=== PATIENT | female | born 2000 | race Caucasian/White ===

== ENCOUNTER 2023-11-11 09:44 | Outpatient (AMB) | payer OTHER, SELFPAY ==
--- NOTE | 2023-11-11 09:51 | MHC.PC.OV ---
Vital Signs 11/11/23 09:53 Height 5 ft 1 in Weight 225 lb BMI 42.5 BP 112/86 Blood Pressure Location Lt brachial Position Sitting Pulse 75 Pulse Source Pulse Oximeter Pulse Oximetry (%) 100 Oxygen Delivery Method Room Air Intake Visit Reasons: New patient- requesting physical Intake Note: Pt is here today as a New Patient to est care/ PE last papsmear 12/17/22 [facility] Is last menstrual period known: Yes Last menstrual period: 11/04/23 Allergies No Known Allergies Allergy (Verified 11/11/23 10:09) Medication List - Last Reconciled 11/11/23 by Dalia Bennett MD No Known Home Meds Tobacco use date assessed: 11/11/23 Dental Screening Dental Screen Date: 11/11/23 Did you have a dental visit in the last 12 months?: Yes Did you have a dental problem in the last 6 months where you did not have access to dental care?: Yes Was dental information given to patient?: Patient has dentist HPI New patient- requesting physical HPI Details 23-year-old lady, new to practice, here to establish care with a new PCP and requesting a physical exam. She is up-to-date with her cervical cancer screening, done 12/17/2022 in [facility]. She has history of anxiety depression currently not taking any medications, and previously was able to control through behavioral techniques but has been under lot of stress lately, and requesting referral to see a therapist. Not want to start any medications however at present time.. Has morbid obesity, trying to lose weight through diet and exercise. [facility] Medical History (Updated 11/11/23 @ 10:41 by Dalia Bennett MD) Fatigue Morbid obesity Anxiety and depression No pertinent past medical history Surgical History (Updated 11/11/23 @ 10:14 by Dalia Bennett MD) History of Family History (Updated 11/11/23 @ 10:23 by Dalia Bennett MD) Father Borderline personality disorder Mother Essential hypertension Social History (Updated 11/11/23 @ 10:15 by Dalia Bennett MD) Housing: Apartment Patient Tobacco Use Status: Never used Tobacco e-Cigarette/Vaping Use: Currently Using service: No Current occupational status: employed Cognitive needs: No Hearing needs: No Vision needs: Yes Female Reproductive History Menstrual Duration of menses: 3-5 days Date of last menstrual period: 11/04/23 control method: none Date of last pap smear: 12/17/22 (Negative for malignancy done at [facility]) Questionnaire PHQ-9 Over the last 2 weeks, how often have you been bothered by any of the following problems? 1. Little interest or pleasure in doing things: several days 2. Feeling down, depressed, or hopeless: several days 3. Trouble falling or staying asleep, or sleeping too much: several days 4. Feeling tired or having little energy: several days 5. Poor appetite or overeating: several days 6. Feeling bad about yourself - or that you are a failure or have let yourself or your family down: several days 7. Trouble concentrating on things, such as reading the newspaper or watching television: several days 8. Moving or speaking so slowly that other people could have noticed. Or the opposite - being so fidgety or restless that you have been moving around a lot more than usual: not at all 9. Thoughts that you would be better off or of hurting yourself in some way: not at all Total score: 7 Depression Screening Interpretation: Positive Depression Screening Done: Yes 47541 - PHQ-9 Billing: Yes Source: Developed by Drs. Flaco Ayoub, Elza Parrish, Leno Carlson and colleagues, with an educational luisa from [employer]. Thrive Questionnaire Date Thrive assessed: 11/11/23 I am a: Patient What is your living situation today?: I have a steady place to live Within the past 12 months, did the food you bought not last and you didn't have the money to get more?: Never true Within the past 12 months, did you worry whether your food would run out before you got money to buy more?: Never true Do you have trouble paying for medicines?: No Do you have trouble getting transportation to medical appointments?: No Do you have trouble paying your heating and electricity bill?: No Do you have trouble taking care of your child, family member or friend?: No Do you have trouble with day-to-day activities such as bathing, preparing meals, shopping, managing finances, etc.?: No Are you currently unemployed and looking for a job?: No Are you interested in more education?: Yes Please select the resources that you would like help with: Education THRIVE Score: 0 AUDIT C Alcohol Use Questionnaire (AUDIT-C) 1. How often do you have a drink containing alcohol?: Never Total Score: 0 JOE-7 AMB Questionnaire JOE-7 Date JOE - 7 assessed: 11/11/23 Feeling nervous, anxious, or on edge: 2 = More than half the days Not being able to stop or control worryin = More than half the days Worrying too much about different things: 2 = More than half the days Trouble relaxin = Several days Being so restless that it is hard to sit still: 1 = Several days Becoming easily annoyed or irritable: 1 = Several days Feeling afraid as if something awful might happen: 1 = Several days Total JOE-7 score (0-4 normal; 5-9 mild; 10-14 moderate; 15-21 severe): 10 Source: Developed by Drs. Flaco Ayoub, Elza Parrish, Leno Carlson and colleagues, with an educational luisa from [employer]. JOE-7 Assessment Billing JOE-7 Assessment Tool: JOE-7 Assessment 72873 Review of Systems Const Denies body aches, Denies fatigue, Denies fever(s), Denies headache(s) and Denies weakness Eyes Denies change in vision, Denies eye discharge and Denies itchy eyes ENT Denies dizziness, Denies headache(s), Denies nasal congestion, Denies nasal discharge and Denies sore throat Card Denies chest pain, Denies lightheadedness, Denies palpitations and Denies dyspnea Resp Denies chest congestion, Denies cough, Denies dyspnea and Denies wheezing GI Denies abdominal pain, Denies change in bowel habits and Denies heartburn Denies hematuria, Denies urinary frequency, Denies dysuria and Denies urinary urgency Musc Reports no additional complaints Skin/Breast Denies breast pain, Denies breast mass, Denies lesions and Denies rash Neuro Denies dizziness, Denies headache(s) and Denies weakness Psych Reports as per HPI Endo Denies fatigue, Denies polydipsia, Denies polyuria and Denies palpitations Luis/Lymph Denies easy bruising Aller/Immun Denies itchy eyes, Denies seasonal rhinorrhea and Denies wheezing Physical exam (Primary Care) Vital Signs: Last Vital Signs Pulse 75 11/11/23 09:53 BP 112/86 11/11/23 09:53 Pulse Ox 100 11/11/23 09:53 Oxygen Delivery Method Room Air 11/11/23 09:53 BMI result Body Mass Index 42.5 Tobacco/Smoking Status: Tobacco use Status Tobacco use date assessed 11/11/23 11/11/23 09:58 Patient Tobacco Use Status Never used Tobacco 11/11/23 10:15 e-Cigarette/Vaping Use Currently Using 11/11/23 10:15 PHQ-9: PHQ-9 Score PHQ-9: Total score 7 11/11/23 10:29 Depression Screening Interpretation: Positive Thrive Assessment: Date of Thrive Assessment Date Thrive assessed 11/11/23 11/11/23 10:29 Const General: no acute distress and alert Nutritional Appearance: obese Orientation/consciousness: patient oriented x3 HENMT Head: Yes normocephalic Ears: external ears normal, TM's normal bilaterally and EAC's normal General nose exam: Normal external nose present and No nasal discharge present Face and sinus: Yes face symmetric Mouth: Normal oral and palatal mucosa present, oropharynx normal and moist mucous membranes Eyes General: appearance normal, both eyes and all related structures Conjunctivae: conjunctivae normal Sclerae: sclerae normal Pupils: Equal, round and reactive pupils present EOM: EOMs intact bilaterally Neck Neck: Yes full ROM, Yes no lymphadenopathy and Yes supple Thyroid: Thyroid normal Chest Breast/axilla palpation: normal palpation of the breasts Resp Effort & Inspection: normal respiratory effort and able to speak in complete sentences Auscultation: clear to auscultation bilaterally Cardio Rate: regular rate Rhythm: regular rhythm Heart sounds: S1 normal heart sound present and S2 normal heart sound present GI Palpation (GI): Soft to palpation, nontender, no guarding and no masses Auscultation: normal bowel sounds General: Yes no CVA tenderness Back/Spine/Pelvis Back: no CVA tenderness and No back tenderness Skin General skin exam: no rashes or lesions noted Neuro General: patient oriented x3, gait normal, moves all extremities, Normal light touch and pain sensation, no focal motor deficits and CN's II-XI intact bilaterally Cranial nerves: Yes Equal, round and reactive pupils present Cognition (Neuro): normal cognition Gait exam (Neuro): Normal gait present Motor exam (neuro): 5/5 motor strength present throughout Extrem General: Yes normal to inspection, Yes full ROM, Yes no joint enlargement, Yes no pedal edema and Yes normal gait Psych Appearance: grossly normal and well kempt Mental Status: mental status grossly normal Speech and movement: Normal speech and movement present Affect: normal affect Attitude: cooperative Thought process: Normal thought process present Thought content: Normal thought content present Assessment and Plan Assessment & Plan (1) Annual visit for general adult medical examination with abnormal findings: Code(s): Z00.01 - Encounter for general adult medical examination with abnormal findings Plan: Will check appropriate labs. Recommended dental visit every 6 months and regular eye exams, at least every 2 years. Take adequate calcium in diet and vitamin-D 3 at 2000 IU per cap once a day, in addition to weight-bearing exercises to help maintain good muscle tone and weight control. Instructed to do self-breast exam, and recommended to get yearly mammogram, starting at age 40. She went to [facility] for her routine Pap and pelvic exam, last done a year ago with normal findings per patient would like to be referred to an OBGYN here at [facility].. Reminded to get her yearly flu shot, up-to-date with her Tdap, but does not want to get a COVID vaccine (2) Anxiety and depression: Code(s): F41.9 - Anxiety disorder, unspecified; F32.A - Depression, unspecified Plan: Referred to our mental health coordinator, Stephanie for assistance in getting in to be seen for counseling. Patient does not want to start any medications at present time. (3) Morbid obesity: Code(s): E66.01 - Morbid (severe) obesity due to excess calories Plan: Discussed need to increase activity and weight reduction. Recommended focusing on improving health instead of dieting. Mediterranean diet is a healthy diet that helps, limit food high in fat, sugar, and calories. Eat slowly, pay attention to portion sizes, plan your meals ahead of time, start regular physical activity, at least 150 minutes of moderate intensity exercise, or 90 minutes per week of vigorous exercise. Keeping a food diary, tracking what you eat and your physical activity can help assess what improvements you can make. There are many health problems associated with being overweight/obese, so it is important to improve your diet and exercise. There are medications and surgical options available, but Lifestyle changes are the 1st step. Orders: Orders Hemoglobin and Hematocrit 11/11/23 E66.01 - Morbid (severe) obesity due to excess calories, F32.A - Depression, unspecified, F41.9 - Anxiety disorder, unspecified, R53.83 - Other fatigue, Z00.01 - Encounter for general adult medical examination with abnormal findings, Z13.1 - Encounter for screening for diabetes mellitus, Z13.220 - Encounter for screening for lipoid disorders Alanine Aminotransferase 11/11/23 E66.01 - Morbid (severe) obesity due to excess calories, F32.A - Depression, unspecified, F41.9 - Anxiety disorder, unspecified, R53.83 - Other fatigue, Z00.01 - Encounter for general adult medical examination with abnormal findings, Z13.1 - Encounter for screening for diabetes mellitus, Z13.220 - Encounter for screening for lipoid disorders Aspartate Amino Transferase 11/11/23 E66.01 - Morbid (severe) obesity due to excess calories, F32.A - Depression, unspecified, F41.9 - Anxiety disorder, unspecified, R53.83 - Other fatigue, Z00.01 - Encounter for general adult medical examination with abnormal findings, Z13.1 - Encounter for screening for diabetes mellitus, Z13.220 - Encounter for screening for lipoid disorders Basic Metabolic Panel Fasting 11/11/23 E66.01 - Morbid (severe) obesity due to excess calories, F32.A - Depression, unspecified, F41.9 - Anxiety disorder, unspecified, R53.83 - Other fatigue, Z00.01 - Encounter for general adult medical examination with abnormal findings, Z13.1 - Encounter for screening for diabetes mellitus, Z13.220 - Encounter for screening for lipoid disorders Lipid Panel 11/11/23 E66.01 - Morbid (severe) obesity due to excess calories, F32.A - Depression, unspecified, F41.9 - Anxiety disorder, unspecified, R53.83 - Other fatigue, Z00.01 - Encounter for general adult medical examination with abnormal findings, Z13.1 - Encounter for screening for diabetes mellitus, Z13.220 - Encounter for screening for lipoid disorders Vitamin D 25-OH Total 11/11/23 E66.01 - Morbid (severe) obesity due to excess calories, F32.A - Depression, unspecified, F41.9 - Anxiety disorder, unspecified, R53.83 - Other fatigue, Z00.01 - Encounter for general adult medical examination with abnormal findings, Z13.1 - Encounter for screening for diabetes mellitus, Z13.220 - Encounter for screening for lipoid disorders TSH reflex Free T4 11/11/23 E66.01 - Morbid (severe) obesity due to excess calories, F32.A - Depression, unspecified, F41.9 - Anxiety disorder, unspecified, R53.83 - Other fatigue, Z00.01 - Encounter for general adult medical examination with abnormal findings, Z13.1 - Encounter for screening for diabetes mellitus, Z13.220 - Encounter for screening for lipoid disorders Referrals B[employer] 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 Referral E66.01 - Morbid (severe) obesity due to excess calories, F32.A - Depression, unspecified, F41.9 - Anxiety disorder, unspecified, R53.83 - Other fatigue, Z00.01 - Encounter for general adult medical examination with abnormal findings, Z13.1 - Encounter for screening for diabetes mellitus, Z13.220 - Encounter for screening for lipoid disorders Coding Level of Care Code New Pt Prev Care 18-39yr([id number] Diagnoses Annual visit for general adult medical examination with abnormal findings Z00.01 Anxiety and depression F41.9; F32.A Morbid obesity E66.01 Additional Codes JOE-7 Assessment Billing - JOE-7 Assessment Tool: JOE-7 Assessment 59211 ([id number])
[2023-11-11 09:53] VITALS: BP 112/86; PULSE 75; O2SAT 100; BMI 42.5
== END 2023-11-11 11:00 | disposition home or self-care (01) ==
PROVIDERS: PCP Internal Medicine; Visit Provider Internal Medicine
DX: Z00.00 Encounter for general adult medical examination without abnormal findings (principal); E66.01 Morbid (severe) obesity due to excess calories; Z68.41 Body mass index [BMI] 40.0-44.9, adult; F41.9 Anxiety disorder, unspecified; F32.A Depression, unspecified
CPT/HCPCS: 96127; 99385

== ENCOUNTER 2024-10-06 09:56 | Outpatient (AMB) | payer OTHER, SELFPAY ==
--- NOTE | 2024-10-06 09:59 | AM.OFFWIN_ITS ---
Intake Vital Signs 10/06/24 10:04 Weight 225 lb BP 110/76 Blood Pressure Location Rt brachial Position Sitting Pulse 80 Pulse Source Pulse Oximeter Pulse Oximetry (%) 99 Oxygen Delivery Method Room Air Intake Visit Reasons: EP STD testing? Intake Note: Patient here for vaginal sensitivity, small bumps she noticed last saturday. has a new partner on and off for a few months. Patient Tobacco Use Status: Never used Tobacco Allergies No Known Allergies Allergy (Verified 10/06/24 10:04) Do you need a note to return to daycare/school/sports/work: No HPI HPI Comments History of Present Illness Details History of Present Illness The patient is a 24-year-old female presenting with genital lesions. She reported small, sensitive bumps on her vulva for the past week, located externa lly, without associated itchiness. The lesions are sensitive, particularly during wiping or washing, but do not burn or tingle. She engaged with a partner following a period of inactivity, raising concerns about potential exposure to other partners. The patient noted a small amount of white discharge coming from the area. She experienced no burning during urination, and the lesions themselves are not exuding any substance. The patient's last menstrual period was the preceding Saturday, concluding over the weekend, with no possibility of . She denies any associated systemic symptoms such as fever, chills, chest pain, or gastrointestinal distress, aside from mild stomach pain. She denies dysuria, hematuria, vaginal bleeding, or odor. Physical Exam General: Cooperative, healthy appearing, comfortable, no acute distress and well developed Orientation: Patient oriented x3 Respiratory: Normal respiratory effort and able to speak in complete sentences. Clear to auscultation bilaterally Cardiovascular: Regular rate and rhythm. Normal S1 and S2 GI: Normal to inspection. Soft to palpation and nontender Skin: Bumps noted on the inner vulva, sensitive to palpation. No discharge note d. No rashes or lesions noted elsewhere. Patient was informed and verbally consented to the use of an ambient scribe for clinic note documentation during this visit. [facility] Medical History (Updated 10/06/24 @ 11:00 by Sahra Florence PA-C) Fatigue Morbid obesity Anxiety and depression (~10/06/24) No pertinent past medical history Surgical History (Updated 11/11/23 @ 10:14 by Dalia eBnnett MD) History of Family History (Updated 11/11/23 @ 10:23 by Dalia Bennett MD) Father Borderline personality disorder Mother Essential hypertension Social History (Updated 11/11/23 @ 10:15 by Dalia Bennett MD) Housing: Apartment Patient Tobacco Use Status: Never used Tobacco e-Cigarette/Vaping Use: Currently Using service: No Current occupational status: employed Cognitive needs: No Hearing needs: No Vision needs: Yes Review of Systems Const All systems reviewed & are unremarkable except as noted in HPI and below Physical Exam Vital Signs: Last Vital Signs Pulse 80 10/06/24 10:04 BP 110/76 10/06/24 10:04 Pulse Ox 99 10/06/24 10:04 Oxygen Delivery Method Room Air 10/06/24 10:04 Assessment & Plan Assessment & Plan (1) Vaginal lesion: Code(s): N89.8 - Other specified noninflammatory disorders of vagina Plan Most likely herpes vs STD vs folliculitis Plan The examination suggested that the genital lesions may indicate an HSV infection. Culture swabs were taken for confirmatory testing. The patient was educated on the lesion's nature and instructed on sample collection. Emphasis was placed on hygiene and sexual safety to manage symptoms and prevent spread. Will order STD testing for other STD's today. Discussed safe sex with the patient. Orders: Orders Herpes Virus Culture Today N89.8 - Other specified noninflammatory disorders of vagina CT NG by PCR Today N89.8 - Other specified noninflammatory disorders of vagina HIV Ab/Ag Today N89.8 - Other specified noninflammatory disorders of vagina Bacterial Vaginosis Panel Today N89.8 - Other specified noninflammatory disorders of vagina Syphilis Screen Today N89.8 - Other specified noninflammatory disorders of vagina Coding Level of Care Code Est Pt Level 4 (86788) Diagnoses Vaginal lesion N89.8
[2024-10-06 10:04] VITALS: BP 110/76; PULSE 80; O2SAT 99
== END 2024-10-06 11:06 | disposition home or self-care (01) ==
PROVIDERS: PCP Internal Medicine; Visit Provider Physician Assistant Medical
DX: N89.8 Other specified noninflammatory disorders of vagina (principal)

== ENCOUNTER 2024-10-06 09:56 | Outpatient (REF) | payer OTHER, SELFPAY ==
[2024-10-06 14:04] LABS: Bacterial Vaginosis PCR NEGATIVE (Negative); Candida Group PCR DETECTED (Not Detect); Candida glab krusei PCR NOT DETECTED (Not Detect); Trichomonas vaginalis PCR NOT DETECTED (Not Detect)
[2024-10-06 14:39] LABS: CT PCR NOT DETECTED (Not Detect.); NG PCR NOT DETECTED (Not Detect.)
== END 2024-10-06 09:57 | disposition home or self-care (01) ==
LOC: HO.HMGCLDS 09:56
PROVIDERS: PCP Internal Medicine; Visit Provider Physician Assistant Medical
DX: N89.8 Other specified noninflammatory disorders of vagina (principal)
CPT/HCPCS: 81515; 87255; 87491; 87591

== ENCOUNTER 2025-04-13 10:39 | Outpatient (REF) | payer OTHER, SELFPAY ==
[2025-04-13 13:44] LABS: MANUAL DIFF FLAG NO
[2025-04-13 14:01] LABS: Hematocrit 39.3 % (37.0-47.0); Hemoglobin 12.3 g/dl (12.0-16.0); Imm Gran Abs Auto 0.01 X10*3/uL (0.00-0.03); Imm Gran Pct Auto 0.2 % (0.0-0.4); Lymphocytes Absolute Auto 1.7 X10*3/uL (1.2-4.9); Mean Corpuscular HGB Conc 31.3 g/dl (31.0-35.0); Mean Corpuscular Hemoglobin 25.9 pg (27.0-33.0); Mean Corpuscular Volume 82.7 fL (80.0-98.0); NRBC Abs Auto 0.000 X10*3/uL (0.0-0.012); NRBC Pct Auto 0.0 /100WBC (0.0-0.2); Platelet Count 319 X10*3/uL (160-400); Red Blood Count 4.75 X10*6/uL (4.20-5.50); White Blood Count 6.3 X10*3/uL (4.8-10.8)
[2025-04-13 14:35] LABS: Erythrocyte Sedimentation Rate 11 MM/HR (0-20)
[2025-04-13 14:51] LABS: Alanine Aminotransferase 19 U/L (0-31); Albumin Level 4.6 g/dL (3.5-5.0); Alkaline Phosphatase 67 U/L (39-117); Anion Gap 10 (12-20); Aspartate Amino Transferase 23 U/L (5-31); Blood Urea Nitrogen 10 mg/dL (9-16); Calcium 9.6 mg/dL (8.4-10.2); Carbon Dioxide 28 mmol/L (22-29); Chloride 107 mmol/L (96-108); Cholesterol 239 mg/dL (<200); Estimated Glomerular Filt Rate > 60; HDL Cholesterol 64 mg/dL (>40); Potassium 3.9 mmol/L (3.3-5.1); Sodium 141 mmol/L (135-145); Total Protein 7.5 g/dL (6.5-8.0); Triglycerides 81 mg/dL (<150)
[2025-04-13 15:16] LABS: Folate 8.5 ng/mL (> or = 4.0); Vitamin B12 387 pg/mL (200-900)
[2025-04-14 06:43] LABS: Lyme Abs Screen <0.90 index
== END 2025-04-13 10:40 | disposition home or self-care (01) ==
LOC: HO.HMGCLDS 10:39
PROVIDERS: PCP Internal Medicine; Visit Provider Internal Medicine
DX: Z01.84 Encounter for antibody response examination (principal); E66.01 Morbid (severe) obesity due to excess calories; R53.83 Other fatigue; M25.50 Pain in unspecified joint; Z13.220 Encounter for screening for lipoid disorders; Z13.1 Encounter for screening for diabetes mellitus; Z13.21 Encounter for screening for nutritional disorder
CPT/HCPCS: 36415; 80053; 80061; 82306; 82607; 82746; 84443; 85025; 85652; 86141; 86431; 86617; 86618

== ENCOUNTER 2025-04-15 11:17 | Outpatient (AMB) | payer OTHER, SELFPAY ==
--- NOTE | 2025-04-15 11:31 | A.OFFPC_ITS ---
Vital Signs 04/15/25 11:35 Height 5 ft 1 in Weight 233 lb BMI 44.0 BP 110/80 Blood Pressure Location Lt brachial Position Sitting Respiration 16 Pulse 74 Pulse Source Pulse Oximeter Temp 98.1 F Temp Source Oral Pulse Oximetry (%) 99 Oxygen Delivery Method Room Air Intake Visit Reasons: Annual PE Intake Note: Pt is here today for her PE: Last papsmear 12/17/22 Is last menstrual period known: Yes Last menstrual period: 04/03/25 Allergies No Known Allergies Allergy (Verified 04/15/25 11:36) Tobacco use date assessed: 04/15/25 Dental Screening Dental Screen Date: 04/15/25 Did you have a dental visit in the last 12 months?: Yes Did you have a dental problem in the last 6 months where you did not have access to dental care?: No Was dental information given to patient?: Patient has dentist [facility] Medical History (Updated 04/15/25 @ 12:07 by Dalia Bennett MD) Rash Elevated C-reactive protein (CRP) Polyarthralgia Pain of both wrist joints Fatigue Morbid obesity Anxiety and depression (~10/06/24) No pertinent past medical history Surgical History (Updated 11/11/23 @ 10:14 by Dalia Bennett MD) History of Family History (Updated 04/15/25 @ 11:52 by Dalia Bennett MD) Father Borderline personality disorder Mother Essential hypertension Psoriasis Maternal Grandfather Bone cancer Social History (Updated 11/11/23 @ 10:15 by Dalia Bennett MD) Housing: Apartment Patient Tobacco Use Status: Never used Tobacco e-Cigarette/Vaping Use: Currently Using service: No Current occupational status: employed Cognitive needs: No Hearing needs: No Vision needs: Yes Female Reproductive History Menstrual Date of last menstrual period: 04/03/25 Questionnaire PHQ-9 Over the last 2 weeks, how often have you been bothered by any of the following problems? 1. Little interest or pleasure in doing things: several days 2. Feeling down, depressed, or hopeless: several days 3. Trouble falling or staying asleep, or sleeping too much: nearly every day 4. Feeling tired or having little energy: nearly every day 5. Poor appetite or overeating: nearly every day 6. Feeling bad about yourself - or that you are a failure or have let yourself or your family down: several days 7. Trouble concentrating on things, such as reading the newspaper or watching television: nearly every day 8. Moving or speaking so slowly that other people could have noticed. Or the opposite - being so fidgety or restless that you have been moving around a lot more than usual: several days 9. Thoughts that you would be better off or of hurting yourself in some way: not at all Total score: 16 Depression Screening Interpretation: Positive Depression Screening Done: Yes 62175 - PHQ-9 Billing: Yes Source: Developed by Drs. Flaco Ayoub, Elza Parrish, Leno Carlson and colleagues, with an educational luisa from [employer]. Thrive Questionnaire Date Thrive assessed: 01/02/25 What is your living situation today?: I have a steady place to live Within the past 12 months, did the food you bought not last and you didn't have the money to get more?: Never true Within the past 12 months, did you worry whether your food would run out before you got money to buy more?: Never true Do you have trouble paying for medicines?: No Do you have trouble getting transportation to medical appointments?: No Do you have trouble paying your heating and electricity bill?: No Do you have trouble taking care of your child, family member or friend?: No Do you have trouble with day-to-day activities such as bathing, preparing meals, shopping, managing finances, etc.?: No Are you currently unemployed and looking for a job?: No Are you interested in more education?: No Please select the resources that you would like help with: Paying for medicine Currently or been in a relationship where the following occur: No concerns reported THRIVE Score: 0 AUDIT C Alcohol Use Questionnaire (AUDIT-C) 1. How often do you have a drink containing alcohol?: Never Total Score: 0 Score Reviewed/Action Taken: Yes JOE-7 AMB Questionnaire JOE-7 Date JOE - 7 assessed: 11/11/23 Feeling nervous, anxious, or on edge: 2 = More than half the days Not being able to stop or control worryin = More than half the days Worrying too much about different things: 2 = More than half the days Trouble relaxin = Several days Being so restless that it is hard to sit still: 1 = Several days Becoming easily annoyed or irritable: 1 = Several days Feeling afraid as if something awful might happen: 1 = Several days Total JOE-7 score (0-4 normal; 5-9 mild; 10-14 moderate; 15-21 severe): 10 Source: Developed by Drs. Flaco Ayoub, Elza Parrish, Leno Carlson and colleagues, with an educational luisa from [employer]. JOE-7 Assessment Billing JOE-7 Assessment Tool: JOE-7 Assessment 81924 Physical exam (Primary Care) Vital Signs: Last Vital Signs Temp 98.1 F 04/15/25 11:35 Pulse 74 04/15/25 11:35 Resp 16 04/15/25 11:35 BP 110/80 04/15/25 11:35 Pulse Ox 99 04/15/25 11:35 Oxygen Delivery Method Room Air 04/15/25 11:35 BMI result Body Mass Index 44.0 Tobacco/Smoking Status: Tobacco use Status Tobacco use date assessed 04/15/25 04/15/25 11:41 Patient Tobacco Use Status Never used Tobacco 04/15/25 11:32 e-Cigarette/Vaping Use Currently Using 04/15/25 11:32 PHQ-9: PHQ-9 Score PHQ-9: Total score 16 04/15/25 11:42 Depression Screening Interpretation: Positive Thrive Assessment: Date of Thrive Assessment Date Thrive assessed 01/02/25 04/15/25 11:32 Currently or been in a relationship where the following occur: No concerns reported Office Procedures Flu Questionnaire Does the patient have a severe egg allergy?: No Does the patient have severe life threatening allergies?: No Does the patient have a fever or illness today?: No Has the patient ever had Guillain-[place] Syndrome?: No Has the patient ever had any past reaction to a flu shot?: No Immunizations Fluarix [id number] (PF) 45 mcg (15 mcg x 3)/0.5 mL IM syringe Performing Provider: Dalia Bennett MD Performing Location: [facility] [place] [facility] Administered by: Gali Weiss CMA on 04/15/25 12:19 Dose Route Admin Location Dispensed Lot Number Expiration Date [facility] Supply Chain Specialist 0.5 mL IM Left Deltoid 0.5 mL [id number] 11/02/25 [id number] [employer] VIS Given Date VIS Provided VIS Publication Date 04/15/25 Single Vaccine 24 Eligibility Eligibility Date Funding Source Not VFC Eligible 04/15/25 Private Coding Diagnoses Pain of both wrist joints M25.531; M25.532 Anxiety and depression F41.9; F32.A Morbid obesity E66.01 Fatigue R53.83 Annual visit for general adult medical examination with abnormal findings Z00.01 Rash R21 Additional Codes PHQ-9 - 38269 - PHQ-9 Billing: Yes ([id number]) JOE-7 Assessment Billing - JOE-7 Assessment Tool: JOE-7 Assessment [id number] ([id number]) Assessment & Plan Assessment & Plan (1) Pain of both wrist joints: Code(s): M25.531 - Pain in right wrist; M25.532 - Pain in left wrist Category: Medical (2) Anxiety and depression: Onset Date: ~10/06/24 Code(s): F41.9 - Anxiety disorder, unspecified; F32.A - Depression, unspecified Category: Medical (3) Morbid obesity: Code(s): E66.01 - Morbid (severe) obesity due to excess calories Category: Medical (4) Fatigue: Code(s): R53.83 - Other fatigue Category: Medical (5) Annual visit for general adult medical examination with abnormal findings: Code(s): Z00.01 - Encounter for general adult medical examination with abnormal findings (6) Rash: Code(s): R21 - Rash and other nonspecific skin eruption Category: Medical Orders: Orders NE electromyogram (EMG) Today M25.531 - Pain in right wrist, M25.532 - Pain in left wrist NE nerve conduction velocity Today M25.531 - Pain in right wrist, M25.532 - Pain in left wrist Influenza [id number] Immunization Today Z23 - Encounter for immunization Referrals Rheumatology Referral M25.50 - Pain in unspecified joint, R79.82 - Elevated C- reactive protein (CRP) Dermatology Referral R21 - Rash and other nonspecific skin eruption
[2025-04-15 11:35] VITALS: BP 110/80; PULSE 74; RESP 16; TEMP 36.7; O2SAT 99; BMI 44.0
--- OUTSIDE RECORDS SUMMARY | 2025-04-15 17:30 | XMS_ITS ---
Author Name [facility] Organization Unknown History of Medication Use Medication Directions Dispensed Refills Start Date End Date Stat sertraline HCl 12/29/2024 active Encounters Encounter Type Encounter Reason Primary Diagnosis Location Date Ambulatory TBE Strain of unspec ified muscle and tendon at ankle and foot level, right foot, initial encounter [facility] 02/10/2025 Care Team Organization Name Specialty Phone Email Start Date End Da te [facility] 02/10/2025 [facility] 02[facility]10/2025
== END 2025-04-15 13:02 | disposition home or self-care (01) ==
PROVIDERS: PCP Internal Medicine; Visit Provider Internal Medicine
DX: Z23 Encounter for immunization (principal)

== ENCOUNTER → 2025-04-15 11:17 | Outpatient (BNVA) | payer OTHER, SELFPAY | PROVIDERS: PCP Internal Medicine; Visit Provider Internal Medicine | DX: Z13.31 Encounter for screening for depression (principal); Z13.39 Encounter for screening examination for other mental health and behavioral disorders; Z23 Encounter for immunization | CPT/HCPCS: 90471; 90656; 96127 ==

== ENCOUNTER 2025-04-27 10:17 | Outpatient (REF) | payer OTHER, SELFPAY | END 2025-04-27 10:18 | disposition home or self-care (01) | LOC: HO.HMGCLDS 10:17 | PROVIDERS: PCP Internal Medicine; Visit Provider Internal Medicine | DX: M25.531 Pain in right wrist (principal); M25.532 Pain in left wrist; R53.83 Other fatigue | CPT/HCPCS: 36415; 86140 ==